=== PATIENT | male | born 1985 ===

== ENCOUNTER 2024-03-25 21:07 | Emergency (ER) | payer OTHER ==
[~2024-03-25] VITALS: Ht 172.7 cm; Wt 68.2 kg
[2024-03-25 21:10] VITALS: BP 114/57; PULSE 52; RESP 20; TEMP 98.8; O2SAT 98
[2024-03-25] MEDS ORDERED: OFLO5DRO49 OS (21:15)
[2024-03-25] MEDS ORDERED: IBUP-1492 PO (21:15)
[2024-03-25] MEDS ORDERED: AMOX-457 PO (21:37)
== END 2024-03-25 21:56 | disposition home or self-care (01) ==
LOC: EMS 21:07
DX: H66.012 Acute suppurative otitis media with spontaneous rupture of ear drum, left ear (principal)
CPT/HCPCS: 99283; Z7502